=== PATIENT | male | born 1995 | race American Indian/Alaskan Native ===

== ENCOUNTER 2017-01-01 16:27 | Emergency (ER) | payer SELFPAY ==
--- NOTE | 2017-01-01 19:52 | Emergency Department Report ---
HPI - General Chief Complaint: Upper Respiratory Infection Time Seen by Provider: 01/01/17 19:20 - HPI HPI: Patient here reported that she was sent home from work today. He has flulike symptoms. He said it started 5 days ago and he is getting better but because he was coughing but sent him home. Patient reports chills, bodyaches, productive cough with yellow phlegm and sweats nausea. Vomited times one today. Denies any abdominal or back pain. He said he had one loose stool today. Denies any urinary burning frequency or urgency. He said he did not take his temperature Mucinex yesterday. No fever sliver cutter taken today.General aching 10. Denies any shortness of breath or chest pain. Denies any headache, neck pain or stiffness. Patient reports cough mostly at night when he lays down. Reports nasal congestion with drainage. ED Past Medical Hx - Past Medical History Previous Medical History?: No - Surgical History Past Surgical History?: No - Family History Family history: no significant - Social History Smoking Status: Never Smoker Substance Use Type: None - Medications Home Medications: Home Medications Medication Instructions Recorded Confirmed Last Taken Type Cetirizine HCl [ZyrTEC] 10 mg PO QAM #14 capsule 01/01/17 Unknown Rx Fluticasone [Flonase] 1 spray NS QDAY #1 bottle 01/01/17 Unknown Rx Promethazine [Phenergan TAB] 25 mg PO Q8HR PRN #15 tab 01/01/17 Unknown Rx guaiFENesin/CODEINE [Robitussin AC] 10 ml PO QHS #70 oral.liqd 01/01/17 Unknown Rx predniSONE [Deltasone] 50 mg PO QDAY #5 tab 01/01/17 Unknown Rx ED Review of Systems ROS: Stated complaint: FLU SYMPTOMS Other details as noted in HPI Comment: All other systems reviewed and negative Constitutional: chills Eyes: denies: eye discharge ENT: congestion. denies: ear pain, throat pain Respiratory: cough. denies: orthopnea, shortness of breath, SOB with exertion, SOB at rest, stridor, wheezing Cardiovascular: denies: chest pain, palpitations Gastrointestinal: nausea, vomiting, diarrhea. denies: abdominal pain, constipation Skin: denies: rash Neurological: denies: headache, numbness, paresthesias, confusion, abnormal gait , vertigo Physical Exam - Physical Exam Vital Signs: Vital Signs 01/01/17 16:45 Temperature 98.9 F Pulse Rate 60 Blood Pressure 120/70 O2 Sat by Pulse 18 L Oximetry Vital Signs 01/01/17 01/01/17 16:45 19:52 Temperature 98.9 F Pulse Rate 60 66 Respiratory 18 Rate Blood Pressure 120/70 O2 Sat by Pulse 18 L 100 Oximetry General: This is a 21-year-old male well-nourished well-developed in no acute distress. Physical Exam: Head: Normocephalic atraumatic Mouth: Moist, no pharyngeal exudate or erythema. Uvula is midline and oral airway is patent. No facial swelling. No peritonsillar abscesses. Nose: Congested with erythema to mucosa. Clear Drainage. Maxillary and frontal sinuses nontender to palpate Neck: Supple, no C-spine tenderness, no tracheal deviation. Nontender to palpate. no adenopathy Ears: Bilateral TMs congested without erythema. Bilateral EAC without any redness swelling or drainage. Abdomen: Soft, nontender to palpate in all quadrants, normal bowel sounds in all quadrant and negative CVA tenderness bilaterally. Eyes: Bilateral pupils equal and reactive to light, bilateral EOM intact. Bilateral sclera and conjunctiva without injection. Normal accommodation. No nystagmus Lungs: Clear to auscultate bilaterally no rhonchi wheezes or rales. Normal work of breathing . Dry cough and use of accessory muscles extremity; No CCE. +2 pulses. No neurovascular compromise Cardiovascular: S1-S2, regular rate rhythm. No murmurs. Skin: clean Dry and intact no rash no lesions Psych: Normal mood and behavior ED Course Vital Signs 01/01/17 16:45 Temperature 98.9 F Pulse Rate 60 Blood Pressure 120/70 O2 Sat by Pulse 18 L Oximetry Vital Signs 01/01/17 01/01/17 16:45 19:52 Temperature 98.9 F Pulse Rate 60 66 Respiratory 18 Rate Blood Pressure 120/70 O2 Sat by Pulse 18 L 100 Oximetry - Reevaluation(s) Reevaluation #1: 01/01/17 19:54 ED course uneventful Reevaluation #2: 01/01/17 19:58 Patient orally challenged in the emergency room without any nausea vomiting and is able to tolerate liquids. ED Medical Decision Making - Medical Decision Making ED course: Discussed with patient and family that he has viral syndrome with cough and will be treated with steroid, cough medication, Zyrtec and Claritin. The patient that he does not need antibiotic at this point because it is a virus and not a bacterial infection. I discussed with patient that he had one loose stool today which is not diarrhea. She had an episode of nausea vomiting times one. Patient has no episode of diarrhea or vomiting in the emergency room and he denies being nauseous. I discussed with him that he needs to rest for the next 72 hours, during 2-3 days for today, take medication as prescribed and add vitamin C to boost his immune system. Patient is able to tolerate oral liquids in the emergency room without any vomiting Diagnosis and treatment plan explained to patient and himself understanding. Patient discharged home with family with prescription for prednisone, guaifenesin with codeine, Zyrtec, Phenergan and Claritin. Critical care attestation.: If time is entered above; I have spent that time in minutes in the direct care of this critically ill patient, excluding procedure time. ED Disposition Clinical Impression: Viral upper respiratory tract infection with cough Nausea and vomiting Qualifiers: Vomiting type: unspecified Vomiting Intractability: non-intractable Qualified Code(s): R11.2 - Nausea with vomiting, unspecified Disposition: DISCHARGED TO HOME OR SELFCARE Is pt being admited?: No Does the pt Need Aspirin: No Condition: Stable Instructions: Acute Nausea and Vomiting (ED), Viral Syndrome (ED), Acute Cough (ED) Additional Instructions: Please drink at least 3 L of water/Gatorade per day. Take nausea medication as prescribed and keep in mind that this can cause drowsiness. Do not drive or operate heavy machinery while taking this medication. Take cough medication as prescribed and also this medication will cause drowsiness so please take at night. Take vitamin C supplementation history immune system Rest for 72 hours Prescriptions: guaiFENesin/CODEINE [Robitussin AC] 10 ml PO QHS #70 oral.liqd Cetirizine HCl [ZyrTEC] 10 mg PO QAM #14 capsule Fluticasone [Flonase] 1 spray NS QDAY #1 bottle predniSONE [Deltasone] 50 mg PO QDAY #5 tab Promethazine [Phenergan TAB] 25 mg PO Q8HR PRN #15 tab PRN Reason: Nausea Referrals: [facility] [Outside] - 03/20/17 Forms: Accompanied Note, Work/School Release Form(ED)
[2017-01-01 20:14] VITALS: BP 114/65
== END 2017-01-01 20:15 | disposition home or self-care (01) ==
LOC: ED 16:27
DX: J06.9 Acute upper respiratory infection, unspecified (principal); R11.2 Nausea with vomiting, unspecified
CPT/HCPCS: 99282